=== PATIENT | male | born 1980 | race Caucasian/White ===

== ENCOUNTER 2016-10-18 09:46 | Emergency (ER) | payer OTHER ==
[2016-10-18] MEDS ORDERED: KETOROLAC TROMETHAMINE INJ 30 MG/ML VIAL IV ONE (10:18)
--- NOTE | 2016-10-18 10:22 | ED.PDOC ---
History of Present Illness - General Chief Complaint: Problem Stated Complaint: POSS KIDNEY STONE Time Seen by Provider: 10/18/16 10:15 Source: patient Exam Limitations: no limitations - History of Present Illness Initial Comments: THIS PATIENT ARRIVES WITH A ONE MONTH HISTORY OF INTERMITTENT RIGHT FLANK PAIN RADIATION TO THE RIGHT LOWER QUADRANT. DENIES FEVER BUT VOICES VESICAL TENESMUS AND DRIBBLING. HE STATES THAT ABOUT A MONTH AGO HE WAS HAVING SEVERE RIGHT FLANK PAIN AND WHENEVER HE ARRIVED TO THE ED THE PAIN SUBSIDED. Quality: severe Onset Location: right flank, groin, urethral Radiation: RLQ Activites at Onset: physical activity Worsening Factors: movement Associated Symptoms: dysuria, lower back pain Allergies/Adverse Reactions: Allergies NO KNOWN ALLERGY Allergy (Verified 10/18/16 09:59) Home Medications: Ambulatory Orders Acetaminophen W/ Codeine [Tylenol W/ CODEINE #3] 1 ea PO Q6HRS #24 10/18/16 Ketorolac Tromethamine 10 mg PO Q8HRS #15 tab 10/18/16 Tamsulosin [Flomax] 0.4 mg PO QDAC #5 cap 10/18/16 Review of Systems - Review of Systems Constitutional: States: malaise EENTM: States: no symptoms reported Respiratory: States: no symptoms reported Cardiology: States: no symptoms reported Gastrointestinal/Abdominal: States: abdominal pain, constipation, nausea Genitourinary: States: dysuria, pain. Denies: hematuria Musculoskeletal: States: back pain Skin: States: no symptoms reported Neurological: States: no symptoms reported Endocrine: States: no symptoms reported Hematologic/Lymphatic: States: no symptoms reported Past Medical History (General) - Patient Medical History Hx Asthma: No Hx of COPD: No Hx Hypertension: No Hx Diabetes: No Hx Cancer: No Surgical History: no surgical history - Vaccination History Hx Tetanus, Diphtheria Vaccination: No Hx Influenza Vaccination: No Hx Pneumococcal Vaccination: No Immunizations Up to Date: No - Social History Hx Alcohol Use: No Hx Substance Use: No Family Medical History - Family History Mother Family History: No Known Physical Exam - Physical Exam General Appearance: Alert, Well Developed Eyes, Ears, Nose, Throat Exam: PERRL/EOMI Neck: non-tender, full range of motion, supple Cardiovascular/Respiratory: regular rate, rhythm, normal peripheral pulses, no JVD, normal breath sounds, no respiratory distress Gastrointestinal/Abdominal: normal bowel sounds, no organomegaly, no pulsatile mass Back Exam: normal inspection, no CVA tenderness, no vertebral tenderness Extremity: normal range of motion, non-tender, normal inspection Neurologic: no motor/sensory deficits Skin Exam: normal color Lymphatic: no adenopathy Progress - Progress Progress: 10/18/16 10:25 RIGHT FLANK PAIN, WILL OBTAIN A CBC, CMP, UA AND A CT ABDOMEN AND PELVIS. TORADOL 30 MG IVP WILL BE GIVEN. 10/18/16 11:22 WHENEVER THE PATIENT CAME BACK FROM THE CT HE DEVELOPED SEVERE RIGHT FLANK PAIN. HE RESPONDED WELL TO 30 MG OF [address]ORADOL. THE CT SCAN REVEALS A 5 MM STON AT THE RIGHT UVJ. AT THIS TIME THE PATIENT IS PAIN FREE. WILL DC WITH GAGE LOPEZ AND CONSULTATION WITH UROLOGY. - EKG/XRAY/CT CT Ordered: Yes CT Interpretation Call Back Date: 10/18/16 Departure - Departure Clinical Impression: Ureterolithiasis Disposition: Discharge to Home or Self Care Departure Forms: ED Discharge - Pt. Copy, Patient Portal Self Enrollment Diet: resume usual diet Activity: increase activity as tolerated Referrals: JANUSZ BENTLEY [Referring] - 1-2 Weeks Prescriptions: Acetaminophen W/ Codeine [Tylenol W/ CODEINE #3] 1 ea PO Q6HRS #24 Ketorolac Tromethamine 10 mg PO Q8HRS #15 tab Tamsulosin [Flomax] 0.4 mg PO QDAC #5 cap Home Medications: Ambulatory Orders Acetaminophen W/ Codeine [Tylenol W/ CODEINE #3] 1 ea PO Q6HRS #24 10/18/16 Ketorolac Tromethamine 10 mg PO Q8HRS #15 tab 10/18/16 Tamsulosin [Flomax] 0.4 mg PO QDAC #5 cap 10/18/16
--- NOTE | 2016-10-18 10:43 | CT ---
EXAM DESCRIPTION: Abdoment/Pelvis w/o Contrast CLINICAL HISTORY: RIGHT FLANK PAIN COMPARISON: None. TECHNIQUE: CT of the abdomen and pelvis was performed without contrast. Multiple axial images and multiplanar reconstructions were generated. This exam was performed according to our department minimal dose optimization program which includes automated exposure control, adjustment of mA and/or kV according to patient size and/or use of iterative reconstructed techniques. FINDINGS: Lung bases: The visualized lung bases are clear. Solid organs: Hepatomegaly noted, but no fatty infiltration. The liver measures 19.3 cm. The spleen, bilateral adrenal glands, pancreas and left kidney are unremarkable. There is hydronephrosis of the right kidney and hydroureter due to a partially obstructing right UVJ stone measuring 5 mm in diameter. Gastrointestinal: The stomach, small intestine, and large intestine are normal. Gallbladder is unremarkable. The appendix is normal. No free fluid or free air. Vascular: Normal. Lymph nodes: No pathologically enlarged lymph nodes are present by CT size criteria. Musculoskeletal and soft tissues: No destructive osseous lesions are present. Urinary bladder and pelvic organs: The urinary bladder is normal. IMPRESSION: 1. 5 mm right UVJ stone resulting in mild right hydronephrosis and hydroureter. No additional stones on today's study. 2. The remaining exam reveals a small fat-containing umbilical hernia. Electronically signed by: Kam Sanchez MD 10/18/2016 10:43 AM CDT
[2016-10-18 11:41] VITALS: BP 132/75; TEMP 98.2; O2SAT 98
== END 2016-10-18 11:42 | disposition home or self-care (01) ==
LOC: ER 09:46
DX: N20.1 Calculus of ureter (principal)
CPT/HCPCS: 74176; 80053; 81001; 85025; J1885

== ENCOUNTER 2018-06-12 17:42 | Emergency (ER) | payer OTHER ==
[2018-06-12 18:02] VITALS: TEMP 99.4
[2018-06-12] MEDS: predniSONE 20 MG TAB PO ONE (18:10)
[2018-06-12] MEDS: COLCHICINE 0.6 MG TAB PO ONE (18:10)
--- NOTE | 2018-06-12 18:31 | RAD ---
EXAM DESCRIPTION: Wrist,Left 3 Views CLINICAL HISTORY: inflammation, pain COMPARISON: None FINDINGS: 3 view(s) submitted. No fracture or dislocation is identified. Bone marrow attenuation is unremarkable. No radiopaque foreign body is identified. IMPRESSION: No acute fracture or dislocation. Electronically signed by: Wilmar Gtz 06/12/2018 6:29 PM [facility]
--- NOTE | 2018-06-12 18:31 | RAD ---
EXAM DESCRIPTION: Ankle,Right 2 Views CLINICAL HISTORY: inflammation, pain COMPARISON: None FINDINGS: 2 view(s) submitted. No fracture or dislocation is identified. Bone marrow attenuation is unremarkable. No radiopaque foreign body is identified. IMPRESSION: No acute fracture or dislocation. Electronically signed by: Wilmar Gtz 06/12/2018 6:29 PM [facility]
--- NOTE | 2018-06-12 18:38 | ED.PDOC ---
History of Present Illness - General Chief Complaint: General Stated Complaint: left wrist and right ankle Time Seen by Provider: 06/12/18 17:45 Source: patient Exam Limitations: no limitations - History of Present Illness Initial Comments: the patient is a 37-year-old male presenting to the emergency room secondary to one to 2 weeks of pain in his left wrist. He has had some increased inflammation there and increased pain with movement. No history of any trauma. There is some very mild swelling around the wrist joint. He does have some mild limited extension and flexion secondary to pain only. Just today he started to have a little bit of pain around the medial right ankle. He has had difficulty there in the past and was told that it was likely gout. He was treated with what sounds like prednisone at the time and the issue resolved. No history of any autoimmune disease with this patient or his family. No history of any gout with his family. No fevers. Examination of both joints does not seem to be consistent with any bacterial infection. No recent illnesses. No urinary symptoms. Timing/Duration: unsure Severity: moderate Improving Factors: nothing Worsening Factors: nothing Associated Symptoms: denies symptoms Allergies/Adverse Reactions: Allergies NO KNOWN ALLERGY Allergy (Verified 10/18/16 09:59) Home Medications: Ambulatory Orders predniSONE [Prednisone] 40 mg PO DAILY #14 tab 06/12/18 Review of Systems - Review of Systems Constitutional: States: no symptoms reported EENTM: States: no symptoms reported Respiratory: States: no symptoms reported Cardiology: States: no symptoms reported Gastrointestinal/Abdominal: States: no symptoms reported Genitourinary: States: no symptoms reported Musculoskeletal: States: see HPI Skin: States: no symptoms reported Neurological: States: no symptoms reported Endocrine: States: no symptoms reported All other Systems: No Change from Baseline Past Medical History (General) - Patient Medical History Hx Seizures: No Hx Asthma: No Hx of COPD: No Hx Cardiac Disorders: No Hx Hypertension: No Hx Diabetes: No Hx Cancer: No Surgical History: no surgical history - Vaccination History Hx Tetanus, Diphtheria Vaccination: No Hx Influenza Vaccination: No Hx Pneumococcal Vaccination: No - Social History Hx Tobacco Use: Yes Hx Alcohol Use: No Hx Substance Use: No Family Medical History - Family History Mother Family History: No Known Physical Exam - Physical Exam General Appearance: Alert, Comfortable, No apparent distress Eye Exam: bilateral normal Ears, Nose, Throat: hearing grossly normal, normal ENT inspection, normal pharynx Neck: full range of motion, supple Respiratory: lungs clear, normal breath sounds, no respiratory distress, no accessory muscle use Cardiovascular/Chest: normal peripheral pulses, regular rate, rhythm, no edema Peripheral Pulses: radial,right: 2+, radial,left: 2+ Rectal Exam: deferred Extremity: no pedal edema, no calf tenderness, normal capillary refill, inflammation, swelling, other - slight decreased range of motion of the left wrist Neurologic: jinrikisha driver II-XII nml as tested, alert, normal mood/affect, oriented x 3 Skin Exam: normal color Comments: Vital Signs - 24 hr 06/12/18 17:50 Temperature 99.4 F Pulse Rate [ 105 H left brachial] Respiratory 20 Rate Blood Pressure 165/105 [right brachial ] O2 Sat by Pulse 99 Oximetry Progress - Progress Progress: 06/12/18 18:38 the patient is a 37-year-old male presenting with inflammation of his left wrist and his medial right ankle. It has been suspected that the patient suffers from gout. To this end the patient was given a dose of colchicine and prednisone. He'll be written for prednisone 40 mg daily for the next week. He needs to keep himself well hydrated and avoid alcohol or high protein load meals. If he is failing to improve then he needs to see his primary care doctor to possibly initiate a workup for oligo articular arthritis. It does not appear to be infectious in nature at this point. X-rays of the wrist and the ankle are reassuring as well. ER warnings were given for any significant worsening. Departure - Departure Clinical Impression: Acute arthritis Disposition: Discharge to Home or Self Care Condition: Fair Departure Forms: ED Discharge - Pt. Copy, Patient Portal Self Enrollment Instructions: Gout (DC), Osteoarthritis (DC), Rheumatoid Arthritis (DC) Diet: regular diet - low protein load and avoid alcohol Activity: increase activity as tolerated Referrals: LOREE PATE [employer] [facility] [Primary Care Provider] - 1-2 Weeks Prescriptions: predniSONE [Prednisone] 40 mg PO DAILY #14 tab Home Medications: Ambulatory Orders predniSONE [Prednisone] 40 mg PO DAILY #14 tab 06/12/18 Additional Instructions: the patient is a 37-year-old male presenting with inflammation of his left wrist and his medial right ankle. It has been suspected that the patient suffers from gout. To this end the patient was given a dose of colchicine and prednisone. He'll be written for prednisone 40 mg daily for the next week. He needs to keep himself well hydrated and avoid alcohol or high protein load meals. If he is failing to improve then he needs to see his primary care doctor to possibly initiate a workup for oligo articular arthritis. It does not appear to be infectious in nature at this point. X-rays of the wrist and the ankle are reassuring as well. ER warnings were given for any significant worsening.
[2018-06-12 19:09] VITALS: BP 155/96; O2SAT 97
== END 2018-06-12 19:09 | disposition home or self-care (01) ==
LOC: ER 17:42
DX: M19.032 Primary osteoarthritis, left wrist (principal); M19.071 Primary osteoarthritis, right ankle and foot; Z87.891 Personal history of nicotine dependence
CPT/HCPCS: 73110; 73600; J7512

== ENCOUNTER → 2018-09-12 | Outpatient (CLI) | payer OTHER | LOC: LAB.O 09:40 | PROVIDERS: ATTEND Nurse Practitioner Family | DX: M79.609 Pain in unspecified limb (principal) ==

== ENCOUNTER → 2019-10-27 | Outpatient (CLI) | payer BC ==
--- NOTE | 2019-10-28 08:42 | RAD ---
EXAM DESCRIPTION: Hand x-ray,Right 2 Views CLINICAL HISTORY: PAIN IN RIGHT HAND COMPARISON: None Available. TECHNIQUE: AP, LATERAL x-ray views of the right hand FINDINGS: Two x-ray-view right hand shows comminuted fracture of the first metacarpal fracture lines are seen through the diaphysis and distal metaphysis. No significant displacement. 1 mm gap at the fracture site. No definite extension of fracture lines into the proximal or distal joints. Other bones in the field of view appear intact. There is no underlying lytic bone lesion. There are no significant arthritic changes. There is no radiopaque foreign body. IMPRESSION: Comminuted fracture of the right first metacarpal as described. Electronically signed by: Compa Hernandez MD 10/28/2019 8:41 AM CDT
== END ==
LOC: RAD 12:40
PROVIDERS: ATTEND Nurse Practitioner Family
DX: S62.201A Unspecified fracture of first metacarpal bone, right hand, initial encounter for closed fracture (principal)